=== PATIENT | male | born 1985 | race Caucasian/White ===

== ENCOUNTER 2023-02-04 09:53 | Outpatient (AMB) | payer OTHER, SELFPAY ==
--- NOTE | 2023-02-04 11:16 | MHC.OFFWIV ---
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 He did not check for COVID at home and denies known sick contacts. He denies nausea vomiting or diarrhea, headache, weakness or dizziness, fast heart rate, myalgias malaise, loss of sense of taste or smell, shortness of breath or chest pain, or other significant associated symptoms. Reviewed past medical history with patient as he is new and we have no history in the computer. He gives no pertinent history. Review of Systems Const All systems reviewed & are unremarkable except as noted in HPI and below Physical Exam Vital Signs: Last Vital Signs Temp 98.0 F 02/04/23 11:19 Pulse 82 02/04/23 11:19 BP 124/64 02/04/23 11:19 Pulse Ox 97 02/04/23 11:19 Oxygen Delivery Method Room Air 02/04/23 11:19 BMI result Body Mass Index 29.9 Const General: cooperative, alert, awake, Physically active, ill appearing and well groomed; No acute distress, anxious, diaphoretic, intoxicated appearing, poor hygiene or tired appearing Nutritional Appearance: average body habitus Orientation/consciousness: patient oriented x3 Limitations: no limitations HEENT Head: Yes normal to inspection, Yes normocephalic and Yes atraumatic Ears: hearing grossly normal bilaterally, external ears normal, EAC's normal and TM abnormal wth effusion and erythematous on the right General nose exam: Normal external nose present, Normal septum present, No nasal discharge present, Abnormal mucous membranes and turbinates present and Nasal discharge present Face and sinus: Yes normal facial exam, Yes sinuses nontender and Yes face symmetric Mouth: Normal oral and palatal mucosa present, lip normal and tongue normal Throat: Yes uvula midline, Yes abnormal tonsil (mildly erythematous bilaterally), No peritonsillar mass, Yes postnasal drainage, No uvular edema and No cobblestoning Eyes General: appearance normal, both eyes and all related structures Neck Neck: Yes normal visual inspection Resp Effort & Inspection: normal respiratory effort, able to speak in complete sentences, no audible wheezes, no cough, no grunting, not labored, no nasal flaring, no retractions and symmetric chest movement Auscultation: clear to auscultation bilaterally, no crackles, no rales, no rhonchi, no wheezes, lung sounds not diminished and No rub present Cardio Rate: regular rate Skin Other: Good color, warm and dry Neuro General: patient oriented x3 Psych Appearance: grossly normal Mental Status: mental status grossly normal Speech and movement: Normal speech and movement present Affect: normal affect Attitude: cooperative Thought process: Normal thought process present Insight: Good insight present (Psych) Judgement: Good judgement present (Psych) Results AMB Rapid Strep AMB Rapid Strep Negative Last Edit by Jennifer Villareal CMA on 02/04/23 11:38 Results Reviewed Results Reviewed: Laboratory Last Values Strep Scn Rapid Clinic Negative 02/04/23 11:32 Rapid strep test negative Assessment & Plan Assessment & Plan (1) Viral syndrome: Code(s): B34.9 - Viral infection, unspecified Plan: Patient is a 37-year-old male who comes to the walk-in clinic complaining of acute onset of fever, chills, sore throat, ear pressure since yesterday. He did not check for COVID at home, and rapid testing is pending. Also pending respiratory panel to rule out flu COVID and RSV via PCR. Advised supportive care including adequate hydration. He can also trial Mucinex for the productive cough. Will write him for Augmentin due to the erythema associated with the suppurative fluid in his right ear. He knows to follow up if symptoms persist or worsen. Work note given. Orders: Orders SARS-CoV2/FLU/RSV 02/04/23 R05.9 - Cough, unspecified AMB Rapid Strep Screen 02/04/23 Z13.9 - Encounter for screening, unspecified BinaxNOW Covid-19 Ag 02/04/23 Z20.822 - Contact with and (suspected) exposure to COVID-19 Medications: New amoxicillin-pot clavulanate 875-125 mg 1 tab PO BID 10 tabs 0RF Coding Level of Care Code New Pt Level 4 (57244) Diagnoses Viral syndrome B34.9
[2023-02-04 11:19] VITALS: BP 124/64; PULSE 82; TEMP 36.7; O2SAT 97; BMI 29.9
== END 2023-02-04 12:01 | disposition home or self-care (01) ==
PROVIDERS: Visit Provider Physician Assistant Medical
DX: B34.9 Viral infection, unspecified (principal); J02.9 Acute pharyngitis, unspecified
CPT/HCPCS: 87880; 99051; 99204

== ENCOUNTER 2023-02-04 12:00 | Outpatient (REF) | payer OTHER, SELFPAY ==
[2023-02-04 12:28] LABS: Binax Internal Control QC Valid; Binax Now Covid-19 Ag Negative (Negative); Binax Performed by: PAULP
[2023-02-04 14:31] LABS: Influenza A PCR NEGATIVE (Negative); Influenza B PCR NEGATIVE (Negative); Resp Syncy Virus RNA Qual PCR NEGATIVE (Negative); SARS COV2 PCR INHOUSE NEGATIVE (Negative)
== END 2023-02-04 12:01 | disposition home or self-care (01) ==
LOC: HO.HMGCLDS 12:00
PROVIDERS: Visit Provider Physician Assistant Medical
DX: Z11.52 Encounter for screening for COVID-19 (principal); Z20.822 Contact with and (suspected) exposure to COVID-19; R05.9 Cough, unspecified
CPT/HCPCS: 0241U; 87811; C9803

== ENCOUNTER 2023-02-04 12:20 | Outpatient (REF) | payer OTHER, SELFPAY | END 2023-02-04 12:21 | disposition home or self-care (01) | LOC: HO.LAB 12:20 | PROVIDERS: Visit Provider Physician Assistant Medical | DX: Z13.89 Encounter for screening for other disorder (principal) ==